=== PATIENT | male | born 1985 | race Caucasian/White ===

== ENCOUNTER 2024-05-11 11:11 | Observation (INO) | payer OTHER ==
[2024-05-12 00:40] VITALS: BMI 34.0
[2024-05-12] MEDS: Acetaminophen 500 MG TAB PO SCH ×3 (00:45→12:43)
[2024-05-12] MEDS: Piperacillin/Tazobactam 3.375 GM in Sodium Chloride 0.9% 100 ML IVPB SCH ×2 (00:45→06:20)
[2024-05-12] MEDS: Morphine 2 MG/ML VIAL SLOW IVP PRN (04:05)
[2024-05-12] MEDS: Ketorolac Tromethamine 30 MG (1 mL) VIAL IVP SCH ×2 (06:47→12:42)
[2024-05-12] MEDS: Lactated Ringer's 1,000 ML IV SCH (07:16)
[2024-05-12] MEDS ORDERED: Bupivacaine PF 0.5% 30 ML VIAL ONE (07:19)
[2024-05-12] MEDS ORDERED: EPINEPHrine 1 MG/ML VIAL ONE (07:19)
[2024-05-12] MEDS ORDERED: Ipratropium/Albuterol 3 ML NEB NEB PRN (07:24)
[2024-05-12] MEDS ORDERED: Ondansetron PF 4 MG/2 ML Vial IVP PRN (07:24)
[2024-05-12] MEDS ORDERED: PROPOFOL 40 ML ONE (07:49)
[2024-05-12] MEDS ORDERED: fentaNYL PF 100 MCG/2 ML SYRINGE ONE (07:49)
[2024-05-12] MEDS ORDERED: Dexamethasone 4 mg/ml Vial ONE (07:49)
[2024-05-12] MEDS ORDERED: Lidocaine 1% PF 5 ML VIAL ONE (07:49)
[2024-05-12] MEDS ORDERED: Ondansetron PF 4 MG/2 ML Vial ONE (07:49)
[2024-05-12] MEDS ORDERED: SUCCINYLCHOLINE/SOD CL,ISO/PF 200 MG/10 ML SYRINGE FS ONE (07:49)
[2024-05-12] MEDS ORDERED: Rocuronium Bromide 10 MG/ML (10ML VIAL) ONE (07:49)
[2024-05-12] MEDS ORDERED: Ibuprofen 600 MG TAB PO PRN (07:52)
[2024-05-12] MEDS ORDERED: traMADol HCl 50 MG TAB PO PRN (07:52)
[2024-05-12] MEDS ORDERED: Midazolam HCl 2 mg/2 ml Vial ONE (07:57)
[2024-05-12] MEDS ORDERED: Dexmedetomidine 200 MCG/2 ML VIAL ONE (08:29)
[2024-05-12] MEDS: TETANUS, DIPHTHERIA TOX,ADULT (TDVAX) 0.5 ML VIAL IM ONE (08:42)
[2024-05-12] MEDS ORDERED: Acetaminophen 500 MG TAB PO SCH (09:00)
[2024-05-12] MEDS ORDERED: Famotidine/PF 20 mg/2ml Vial SLOW IVP SCH (09:00)
[2024-05-12] MEDS ORDERED: SUGAMMADEX SODIUM 200 MG/2 ML VIAL ONE ×2 (09:01→09:15)
[2024-05-12] MEDS ORDERED: fentaNYL 50 mcg/mL 1 mL Vial ONE (09:08)
[2024-05-12] MEDS ORDERED: Morphine 4 MG/ML VIAL SLOW IVP PRN (09:34)
[2024-05-12] MEDS ORDERED: Acetaminophen 325 MG TAB PO PRN (11:00)
[2024-05-12] MEDS: Piperacillin/Tazobactam 4.5 GM in Sodium Chloride 0.9% 100 ML IVPB SCH (16:21)
[2024-05-12] MEDS: Enoxaparin 40 MG (0.4 mL) SYRINGE SC SCH (21:35)
[2024-05-13 09:10] VITALS: BP 100/58; TEMP 98
== END 2024-05-13 10:26 | disposition home or self-care (01) ==
LOC: SDC 11:11 → MSONC 20:24 → INTOOBSV 20:24
PROVIDERS: ADMIT Specialist; ATTEND Specialist
PROC: 0DTJ4ZZ Resection of Appendix, Percutaneous Endoscopic Approach (ICD-10-PCS; principal; 2024-05-13)
DX: K35.33 Acute appendicitis with perforation, localized peritonitis, and gangrene, with abscess (principal)
CPT/HCPCS: 88304; A4649; J0171; J0665; J1100; J1885; J2250; J2272; J2405; J2543; J2704; J3010